=== PATIENT | female | born 1990 | race Asian ===

== ENCOUNTER 2023-10-17 06:31 | Emergency (ER) | payer MEDICAID ==
[~2023-10-17] VITALS: Ht 165.1 cm; Wt 82.0 kg
[2023-10-17 06:35] VITALS: O2SAT 100
[2023-10-17] MEDS ORDERED: CEPH500C2 PO (07:39)
[2023-10-17] MEDS ORDERED: SULF1TAB48 PO (07:39)
[2023-10-17] MEDS ORDERED: TOPUD PO (07:39)
[2023-10-17 07:49] VITALS: BP 110/74; PULSE 84; RESP 18
[2023-10-17 07:50] VITALS: TEMP 97.9
[2023-10-17] MEDS: ACETAMINOPHEN 325MG TABLET PO ONE (07:50)
== END 2023-10-17 07:54 | disposition home or self-care (01) ==
LOC: ER 06:31
DX: L02.31 Cutaneous abscess of buttock (principal)
CPT/HCPCS: 99281; 99283

== ENCOUNTER 2023-11-14 22:08 | Emergency (ER) | payer MEDICAID ==
[~2023-11-14] VITALS: Ht 167.6 cm; Wt 82.0 kg
[~2023-11-14 22:08] MED LIST: CEPH500C2 PO; SULF1TAB48 PO; TOPUD PO
[2023-11-14 22:13] VITALS: BP 120/78; PULSE 109; RESP 17; TEMP 98; O2SAT 97
[2023-11-14] MEDS ORDERED: IBUPROFEN 600MG TABLET PO ONE (22:30)
== END 2023-11-14 22:54 | disposition left against medical advice (07) ==
LOC: ER 22:08
DX: S21.219A Laceration without foreign body of unspecified back wall of thorax without penetration into thoracic cavity, initial encounter (principal); W26.8XXA Contact with other sharp object(s), not elsewhere classified, initial encounter; Y93.89 Activity, other specified; Y92.89 Other specified places as the place of occurrence of the external cause; Y99.8 Other external cause status
CPT/HCPCS: 99281

== ENCOUNTER 2024-12-20 21:58 | Emergency (ER) | payer MEDICAID, OTHER ==
[~2024-12-20] VITALS: Ht 165.1 cm; Wt 81.0 kg
[2024-12-20 22:14] VITALS: TEMP 36.9; O2SAT 97
[2024-12-21] MEDS: ACETAMINOPHEN 500MG TABLET PO ONE (00:30)
[2024-12-21] MEDS: KETOROLAC 15MG/ML VIAL IM ONE (00:31)
[2024-12-21] MEDS ORDERED: AMOX1TAB16 MT (01:11)
[2024-12-21] MEDS ORDERED: OFLO5DRO4 RIGHT EAR (01:30)
[2024-12-21 01:32] VITALS: BP 115/79; PULSE 68; RESP 14; O2SAT 96
== END 2024-12-21 01:30 | disposition home or self-care (01) ==
LOC: ER 21:58
DX: H60.399 Other infective otitis externa, unspecified ear (principal); J45.909 Unspecified asthma, uncomplicated; Z79.899 Other long term (current) drug therapy; Z98.890 Other specified postprocedural states
CPT/HCPCS: 99283; 96372; J1885; Z7610

== ENCOUNTER 2025-02-11 20:48 | Emergency (ER) | payer SELFPAY ==
[~2025-02-11] VITALS: Ht 165.1 cm; Wt 82.1 kg
[~2025-02-11 20:48] MED LIST changes: +AMOX1TAB16 MT; +OFLO5DRO4 RIGHT EAR
[2025-02-11 20:50] VITALS: O2SAT 100
[2025-02-11 20:56] VITALS: TEMP 36.8
[2025-02-11] MEDS ORDERED: DOXY100C5 MT (22:47)
[2025-02-11] MEDS ORDERED: OFLO5DRO4 LEFT EAR (22:47)
[2025-02-11] MEDS: KETOROLAC 15MG/ML VIAL IM ONE (22:57)
[2025-02-11] MEDS: CEFTRIAXONE SODIUM 500MG VIAL IM ONE (22:58)
[2025-02-11 22:59] LABS: CLARITY URINE CLEAR (CLEAR); COLOR URINE YELLOW (YELLOW); GLUCOSE URINE NEGATIVE (NEGATIVE); KETONES URINE TRACE (NEGATIVE); LEUKOCYTE ESTERASE URINE TRACE (NEGATIVE); NITRITE URINE NEGATIVE (NEGATIVE); OCCULT BLOOD URINE 3+ (NEGATIVE); PH URINE 7.5 (4.5-8.0); PROTEIN URINE TRACE (NEGATIVE); SPECIFIC GRAVITY URINE 1.033 (1.005-1.030); UROBILINOGEN URINE 1.0 E.U./dL (0.2-1.0)
[2025-02-11 23:16] LABS: SQUAMOUS EPITHELIAL CELL URINE 3+ /lpf (RARE/1+)
[2025-02-11 23:17] LABS: HYALINE CASTS URINE 0-5 /lpf
[2025-02-11 23:18] LABS: RBC URINE 15-25 /hpf (0-2)
[2025-02-11 23:20] LABS: BACTERIA URINE 1+
[2025-02-11 23:33] VITALS: BP 116/75; PULSE 71; RESP 12; O2SAT 100
[2025-02-14 04:07] LABS: CHLAMYDIA TRACHOMATIS NAA Negative (Negative); NEISSERIA GONORRHOEAE NAA Negative (Negative)
== END 2025-02-11 23:34 | disposition home or self-care (01) ==
LOC: ER 20:48
DX: H60.93 Unspecified otitis externa, bilateral (principal); J45.909 Unspecified asthma, uncomplicated; Z11.3 Encounter for screening for infections with a predominantly sexual mode of transmission
CPT/HCPCS: 99284; 87491; 87591; 81003; 81025; 96372; J1885; J0696